=== PATIENT | female | born 1960 | race African-American/Black ===

== ENCOUNTER 2017-04-17 17:18 | Emergency (ER) | payer OTHER ==
[~2017-04-17] VITALS: Ht 157.5 cm; Wt 87.0 kg
[2017-04-17 17:21] VITALS: BP 158/85; PULSE 82; RESP 20; TEMP 99.7; O2SAT 96
== END 2017-04-17 18:06 | disposition left against medical advice (07) ==
LOC: NED 17:18
DX: Z04.3 Encounter for examination and observation following other accident (principal); Z53.21 Procedure and treatment not carried out due to patient leaving prior to being seen by health care provider
CPT/HCPCS: 99281